=== PATIENT | female | born 1980 | race Caucasian/White ===

== ENCOUNTER → 2021-01-18 | Outpatient (CLI) | payer OTHER ==
--- NOTE | 2021-01-18 16:41 | CONS ---
CONSULTATION CONSULTATION FOR SLEEP APNEA: This is a very pleasant 40-year-old female patient, she is morbidly obese, who was recently hospitalized for worsening shortness of breath, abdominal distention, and some lower extremity edema. The patient was hospitalized at [facility] and as part of her investigation, she was diagnosed having a pulmonary embolism with negative Dopplers of the lower extremities. She was started on anticoagulation and currently she is on Eliquis. Nevertheless, further investigation of this patient revealed that there were some abnormalities in her right-sided cardiac structures. Initially, she had an echocardiogram and following that she had a MASOUD that showed a normal LV with normal wall thickness, normal LV function with an ejection fraction of 55-60%. Nevertheless, the patient was found to have severe dilatation of the RV and the RV was hypokinetic and there was right ventricular septal more motion abnormality consistent with pressure overload. There were also three homogeneous echogenic masses in the RV with one appearing to attach to the moderator band and the other two attaching to the RV trabeculation. Each one of these masses was measuring around 1 x 1.2 cm in size and they were mobile. The masses did not appear to be influencing the function of the tricuspid valve. RA was moderately dilated and there was trace mitral regurgitation, moderate to severe tricuspid regurgitation was present and atrium septum that was intact without evidence of ASD or PFO. Furthermore, the patient underwent a right-sided cardiac cath. The RA pressure was 26. The RV pressure was 98/49 with an average pressure of 44. The PA pressure was 97/42 with an average pressure of 62. Pulmonary capillary wedge pressure was 15 mmHg. RA pulse ox was 55%. PA pulse ox was 55%. Cardiac output was 4.5 L/minute and index was 2.05 L/minute/m2. Based on these results, the patient was started on Revatio and currently she is taking 20 mg p.o. t.i.d. The patient was referred for sleep evaluation. She is morbidly obese and she obviously has features to indicate the possibility of obstructive sleep apnea. Her sleep quality is also poor and it is fragmented and she snores. She goes to bed around 9-10 p.m. and wakes up between 6-7 in the morning. This patient has gained around 75 pounds over the past 5 years at least. She says her sleep is fragmented and she wakes up multiple times in the middle of the night. No sleep paralysis. No hallucinations. No cataplexy. PAST MEDICAL HISTORY: 1. Questionable pulmonary embolism. 2. Right-sided cardiac masses as discussed above. 3. Severe pulmonary hypertension as discussed above. 4. Hyperlipidemia. 5. Hypertension. 6. Diabetes mellitus. 7. Obesity. 8. Restless leg syndrome. 9. History of anxiety/depression. PAST SURGICAL HISTORY: Includes a previous MASOUD and cholecystectomy. DRUG ALLERGIES: None known. OUTPATIENT MEDICATION LIST: Includes apixaban 5 mg twice a day, Revatio 20 mg t.i.d., Lipitor 10 mg p.o. daily, Celexa 20 mg p.o. daily, glimepiride 1 mg p.o. once a day, metformin 5 mg p.o. 2 tablets twice a day, Klor-Con 20 mEq daily, Requip a 0.5 mg p.o. daily, Aldactone 25 mg p.o. daily, trazodone 50 mg p.o. at night time, omeprazole 40 mg p.o. daily. SOCIAL HISTORY: She is an ex-smoker. No history of alcoholism. No history of IV drugs. FAMILY HISTORY: Positive for diabetes mellitus. REVIEW OF SYSTEMS: Fourteen-point review of system was done, positive findings are mentioned in history of present illness. Her current Hampton Score is at 9. PHYSICAL EXAMINATION: BP is 126/88, pulse 100, respirations 20, temperature 98.4 saturation 95% on room air. Height is 5 feet 3 inches, weight is 258, BMI 45.7, and neck size is 19 1/4 inch. GENERAL APPEARANCE: Obese, calm, comfortable. HEAD is atraumatic normocephalic. NECK: Supple. Significant crowding of posterior pharynx. No goiter or neck masses. Mallampati class 4. Micrognathia is present. LUNGS: Diminished breath sounds, otherwise clear. HEART: Heart sounds, there is an accentuated second heart sound. Positive S1, S2. No significant murmurs appreciated. ABDOMEN: Obese. Organs cannot be adequately palpated. There is no direct tenderness. No rebound. No guarding. EXTREMITIES: Trace edema. There is no cyanosis or clubbing. NEUROLOGIC: Awake and alert. There is no focal neurological deficits. PSYCH: Negative for anxiety or depression. IMPRESSION: 1. Severe pulmonary hypertension, rule out underlying sleep breathing disorder/nocturnal oxygen desaturations. The patient has typical features of obstructive sleep apnea. She is morbidly obese and anatomically she has significant crowding of the posterior pharynx with a Mallampati class 4. Her current Hampton score is at 6. Nevertheless, based on her obesity and clinical features and presence of severe pulmonary hypertension, sleep obtuse sleep apnea needs to be ruled out as another comorbidity contributing to her condition. 2. Severe pulmonary hypertension, consider primary versus secondary. Workup is in progress through cardiology and the results of the right-sided cardiac cath has been noted. 3. Questionable pulmonary embolism, currently on anticoagulation with Eliquis. 4. Cardiac mass versus thrombus. The patient has three homogeneous echogenic mass in the RV measuring 1 x 1.2 cm in size, mobile, not affecting the function of the tricuspid valve. Further investigation may be needed. 5. Severe tricuspid regurgitation with pulmonary hypertension. Estimated pulmonary artery pressures are 62 mmHg, mean. 6. Morbid obesity with a BMI of 45.7. 7. Diabetes mellitus. 8. Hypertension. 9. Hyperlipidemia. 10.Restless leg syndrome. 11.History of chronic anxiety/depression. PLAN: 1. We will proceed with screening polysomnogram. We will look for any significant sleep breathing disorder and treat accordingly. 2. Consider the possibility of obesity hypoventilation syndrome. As such, the patient would benefit from an outpatient pulmonary function test and a room-air blood gas to assess her oxygenation and extent of CO2 retention acid-base status. 3. Follow up with Cardiology regarding the cardiac masses. Consider cardiac MRI. 4. Continue anticoagulation for now. 5. Encourage weight loss. 6. Maintain sleep hygiene measures. 7. Continue trazodone for now. 8. We will continue to follow and make further recommendations based on results of sleep study. Once the workup is complete, the patient may benefit from a second opinion from a pulmonary hypertension clinic, possibly the one in [facility]. MMODL / IJN: [id number] /
== END ==
LOC: SLEEP 14:55
PROVIDERS: ATTEND Internal Medicine Critical Care Medicine
DX: G47.33 Obstructive sleep apnea (adult) (pediatric) (principal); I10 Essential (primary) hypertension; I07.1 Rheumatic tricuspid insufficiency; I27.20 Pulmonary hypertension, unspecified; E66.01 Morbid (severe) obesity due to excess calories; E78.5 Hyperlipidemia, unspecified; F32.9 Major depressive disorder, single episode, unspecified; F41.9 Anxiety disorder, unspecified; Z68.42 Body mass index [BMI] 45.0-49.9, adult; G25.81 Restless legs syndrome; E11.9 Type 2 diabetes mellitus without complications; Z87.891 Personal history of nicotine dependence; Z79.84 Long term (current) use of oral hypoglycemic drugs; Z79.899 Other long term (current) drug therapy; Z79.01 Long term (current) use of anticoagulants
CPT/HCPCS: 99202

== ENCOUNTER → 2021-09-20 | Outpatient (CLI) | payer OTHER ==
--- NOTE | 2021-09-20 15:11 | P.PN ---
Subjective Progress Note Date: 09/20/21 this is a 40-year-old female patient, a case of severe obstructive sleep apnea. The patient also is known to have multiple medical problems and comorbidities. The patient was found to have masses within the right ventricle thought to be related to blood clots. The patient also has developed severe pulmonary hypertension, and the patient is morbidly obese and she has systemic hypertension, hyperlipidemia and diabetes mellitus. Her baseline AHI was 126. The patient was started onCPAP therapy and I put her on a CPAP pressure of 17 cm of water. She has a Simplus fullface mask. Her knee shows response was suboptimal and the patient was trying to get herself more compliant to the achievement. Meanwhile, the patient was seen and [facility]. She was seen by cardiothoracic surgery patient underwent thoracotomy. She had evacuation of the cardiac masses which do not to be scars/clots. She is also going to be seen by the pulmonary hypertension clinic at [facility]. Her surgical wound site is healing nicely. Her thoracotomy scar is dry clean and intact. She is losing weight. She used to weigh around 221 pounds and currently she is on 291 pounds. She has become much more compliant with CPAP therapy. She is currently on APAP mode at a pressure minimum of 7 and a maximum of 15. She is using the same Simplus fullface mask. I did a compliance evaluation the patient and I noted that the patient is having excellent clinical response. She is averaging around 10 hours of CPAP use per night and there is no significant leaks on the mask. Her AHI is down to 1.4 while on treatment. For instance, yesterday's average uses was around 11 hours. She is going to bed between 8 and 10 PM and she is waking up 8-9 AM in the morning. She is refreshed. She has no specific complaints. note that since her surgery, the patient was switched from Eliquis the warfarin. She is also on Lasix 20 mg by mouth daily and she takes metformin and Aldactone. She is using trazodone 50 mg at bedtime for sleep. Objective - Exam vitals include a BP of 120/76, pulse is 80, respirations 20, temperature 97.3 and the saturation on 6% on room air, her Armada score is at 2. The patient appeared well nourished and normally developed. Vital signs as documented. Head exam is unremarkable. No scleral icterus or corneal arcus noted. Neck is without jugular venous distension, thyromegaly, or carotid bruits. Carotid upstrokes are brisk bilaterally. Lungs are clear to auscultation and percussion.the thoracotomy scar over the anterior chest area is dry clean and intact. The patient also has chest tube sites which are essentially clear. Cardiac exam reveals the PMI to be normally sized and situated. Rhythm is regular. First and second heart sounds normal. No murmurs, rubs or gallops. Abdominal exam reveals normal bowel sounds, no masses, no organomegaly and no aortic enlargement. Extremities are nonedematous and both femoral and pedal pulses are normal.Examination of the skin revealed no evidence of significant rashes, suspicious appearing nevi or other concerning lesions.Neurologically, the patient is awake and alert and the patient does not have any focal neurological deficit. Cranial nerves are essentially intact. Assessment and Plan Plan: 1 severe symptomatic obstructive sleep apnea with an AHI of 126. The patient is currently on a CPAP treatment with excellent clinical response and compliancy. 2 severe nocturnal oxygen desaturation, improved with CPAP therapy 3 chronic hypersomnia improved with CPAP therapy and the patient's Armada score is down to 2 4 severe pulmonary hypertension 5 previous history of pulmonary embolism/cardiac thrombus, post thoracotomy cardiac surgery and evacuation of the cardiac masses/thrombi and the patient is currently on warfarin 6 severe tricuspid regurgitation along with pulmonary hypertension 7 systemic hypertension 8 obesity with interval weight loss and current weight is down 291 pounds 9 diabetes mellitus 10 hyperlipidemia 11 chronic anxiety/depression 12 restless leg syndrome Plan I am very much pleased with the current response to CPAP therapy. We'll continue APAP therapy with a pressure minimum of 7 and a maximal 15 and the patient will be kept on the sameSimplus fullface mask. Encourage further weight loss. Follow-up with the pulmonary hypertension clinic at [facility]. Continue anticoagulation with warfarin. Treatment has been extremely successful for this patient. Her Armada score is down to 2. I'm going to see her back in a year's time at follow-up.
== END ==
LOC: SLEEP 14:12
PROVIDERS: ATTEND Internal Medicine Critical Care Medicine
DX: G47.33 Obstructive sleep apnea (adult) (pediatric) (principal); I27.20 Pulmonary hypertension, unspecified; I21.9 Acute myocardial infarction, unspecified; I07.1 Rheumatic tricuspid insufficiency; I10 Essential (primary) hypertension; E66.9 Obesity, unspecified; E11.9 Type 2 diabetes mellitus without complications; E78.5 Hyperlipidemia, unspecified; F32.A Depression, unspecified; Z99.89 Dependence on other enabling machines and devices; Z86.711 Personal history of pulmonary embolism; F41.9 Anxiety disorder, unspecified; G25.81 Restless legs syndrome; Z79.01 Long term (current) use of anticoagulants

== ENCOUNTER → 2022-07-28 | Outpatient (CLI) | payer OTHER ==
--- NOTE | 2022-07-28 13:23 | CT ---
EXAMINATION TYPE: CT abdomen pelvis wo con DATE OF EXAM: 07/28/2022 HISTORY: Hernia for a few years per patient. Small bowel obstruction per order. CT DLP: 1307 mGycm. Automated Exposure Control for Dose Reduction was Utilized. TECHNIQUE: CT scan of the abdomen and pelvis is performed without oral or IV contrast. COMPARISON: NONE FINDINGS: Within the limitations of a non-contrast study, the following observations are made. LUNG BASES: Coronary artery calcification along the LAD is seen. Focal scarring and/or atelectasis i n the right middle lobe is present. Mild linear scarring in the lung bases is seen. LIVER/GB: Liver is heterogeneously hypodense consistent with diffuse fatty infiltration. Cholecystect lucero clips are seen. PANCREAS: No significant abnormality is seen. SPLEEN: No significant abnormality is seen. ADRENALS: No significant abnormality is seen. KIDNEYS: No renal calculi or hydronephrosis is seen bilaterally. BOWEL: No suspicious small or large bowel dilatation. GENITAL ORGANS: Anteverted uterus. Left ovary has a 2.6 cm hypodense lesion axial 114, possible simpl e cyst. It can be better evaluated with pelvic ultrasound if desired. LYMPH NODES: No greater than 1cm abdominal or pelvic lymph nodes are appreciated. OSSEOUS STRUCTURES: No significant abnormality is seen. OTHER: Mild to moderate diffuse subcutaneous edema in the anterior abdominal wall becomes more severe overlying the pelvis. There is asymmetric moderate skin thickening overlying the right anterior pelv is. There is large umbilical or possibly periumbilical hernia extending inferiorly seen best sagittal image 78 for reference in the midline. IMPRESSION: Confirmation of large fat-containing umbilical hernia as detailed above. There is subcuta neous edema and skin thickening greatest over the right anterior pelvis. Findings could reflect sandra s. Cannot exclude soft tissue infection or cellulitis. Correlate clinically.
== END | disposition home or self-care (01) ==
LOC: RADCTMAIN 08:23
PROVIDERS: ATTEND Surgery Plastic and Reconstructive Surgery
DX: K42.9 Umbilical hernia without obstruction or gangrene (principal); K56.600 Partial intestinal obstruction, unspecified as to cause; R60.0 Localized edema
CPT/HCPCS: 74176